=== PATIENT | female | born 1965 | race Caucasian/White ===

== ENCOUNTER 2017-01-04 15:20 | Emergency (ER) | payer MEDICARE ==
[2017-01-04 16:22] LABS: HEMOGLOBIN 15.9 gm/dl (12.3-15.3); RED BLOOD COUNT 4.93 M/UL (4.00-5.10); WHITE BLOOD COUNT 9.8 K/UL (4.5-11.0)
[2017-01-04 16:38] LABS: BUN/CREATININE RATIO 17 (0-10)
== END 2017-01-04 19:20 | disposition home or self-care (01) ==
LOC: ER1 15:20
PROVIDERS: Emergency Medicine
DX: K57.92 Diverticulitis of intestine, part unspecified, without perforation or abscess without bleeding (principal); I25.10 Atherosclerotic heart disease of native coronary artery without angina pectoris; E11.9 Type 2 diabetes mellitus without complications; I10 Essential (primary) hypertension; F17.210 Nicotine dependence, cigarettes, uncomplicated; Z79.84 Long term (current) use of oral hypoglycemic drugs; Z79.82 Long term (current) use of aspirin; Z79.02 Long term (current) use of antithrombotics/antiplatelets; Z79.899 Other long term (current) drug therapy
CPT/HCPCS: 36415; 80053; 81001; 82150; 83690; 85025; 85610; 85730; 96374; 96375; 99284; J2405; J7030

== ENCOUNTER 2017-01-21 17:55 | Emergency (ER) | payer MEDICARE ==
[2017-01-21 20:44] LABS: HEMOGLOBIN 15.4 gm/dl (12.3-15.3); RED BLOOD COUNT 4.85 M/UL (4.00-5.10); WHITE BLOOD COUNT 7.7 K/UL (4.5-11.0)
[2017-01-21 21:06] LABS: BUN/CREATININE RATIO 10 (0-10)
== END 2017-01-21 23:55 | disposition home or self-care (01) ==
LOC: ER1 17:55
PROVIDERS: Emergency Medicine
DX: R10.84 Generalized abdominal pain (principal); R11.0 Nausea; I25.10 Atherosclerotic heart disease of native coronary artery without angina pectoris; E11.9 Type 2 diabetes mellitus without complications; F17.200 Nicotine dependence, unspecified, uncomplicated; Z90.49 Acquired absence of other specified parts of digestive tract; Z95.5 Presence of coronary angioplasty implant and graft; Z79.02 Long term (current) use of antithrombotics/antiplatelets
CPT/HCPCS: 36415; 71010; 80053; 81001; 83690; 84484; 85025; 87086; 93005; 96374; 99284; J2270; J2405; J7050; Q9962

== ENCOUNTER → 2017-02-08 | Outpatient (CLI) | payer MEDICARE ==
[~2017-02-08] VITALS: Ht 162.6 cm; Wt 67.1 kg
== END ==
LOC: OPSV 02-07 15:30
DX: K57.32 Diverticulitis of large intestine without perforation or abscess without bleeding (principal)
CPT/HCPCS: 96365; J1335; J7050

== ENCOUNTER → 2017-02-09 | Outpatient (CLI) | payer MEDICARE ==
[~2017-02-09] VITALS: Ht 167.6 cm; Wt 67.1 kg
== END ==
LOC: OPSV 08:54
DX: K57.32 Diverticulitis of large intestine without perforation or abscess without bleeding (principal)
CPT/HCPCS: 96365; J1335; J7050

== ENCOUNTER → 2017-02-12 | Outpatient (CLI) | payer MEDICARE ==
[~2017-02-12] VITALS: Ht 167.6 cm; Wt 67.1 kg
== END ==
LOC: OPSV 11:00
DX: K57.32 Diverticulitis of large intestine without perforation or abscess without bleeding (principal)
CPT/HCPCS: 96365; J1335; J7050

== ENCOUNTER 2020-10-06 18:24 | Emergency (ER) | payer OTHER ==
[~2020-10-06 18:24] MED LIST: AMARYL1 MG PO; AMITRIPTYLINE100 MG PO; ASPIRIN 325MG325 MG PO; GLUCOPHAGE1000 MG PO; IBU600 MG PO; K-DUR TAB 20 M20 MEQ PO; KEPPRA1000 MG PO; LIPITOR40 MG PO; LOMOTIL 2.5-0.1 EACH PO; MIDODRINE HCL5 MG PO; OXYCONTIN10 MG PO; PAIN RELIEVER325 MG PO; PAXIL30 MG PO; PLAVIX75 MG PO; PREDNISONE2.5 MG PO; PROAMATINE 2.52.5 MG PO; ROPINIROLE HCL2 MG PO; TRICOR 145 MG145 MG PO; VITAMIN C500 MG PO; ZOFRAN ODT 4 MG4 MG PO
== END 2020-10-06 21:11 | disposition left against medical advice (07) ==
LOC: ER1 18:24
DX: R53.1 Weakness (principal); R11.0 Nausea; Z53.21 Procedure and treatment not carried out due to patient leaving prior to being seen by health care provider

== ENCOUNTER 2020-10-13 08:39 | Inpatient (IN) | payer OTHER ==
[~2020-10-13] VITALS: Ht 167.6 cm; Wt 52.6 kg
[2020-10-13 09:37] LABS: HEMOGLOBIN 7.8 gm/dl (12.3-15.3); RED BLOOD COUNT 2.67 M/UL (4.00-5.10); WHITE BLOOD COUNT 6.8 K/UL (4.5-11.0)
[2020-10-13] MEDS ORDERED: ELAVIL 10 MG TA10 MG PO (11:29)
[2020-10-13] MEDS ORDERED: GABAPENTIN300 MG PO (11:29)
[2020-10-13] MEDS ORDERED: LOPERAMIDE2 MG PO (11:30)
[2020-10-13] MEDS ORDERED: FERROUS SULFAT325 M2 PO (18:02)
[2020-10-13] MEDS ORDERED: VISTARIL 25 MG25 MG PO (18:07)
[2020-10-13 21:00] LABS: HEMOGLOBIN 8.9 gm/dl (12.3-15.3)
[2020-10-14 04:22] LABS: HEMOGLOBIN 9.7 gm/dl (12.3-15.3); WHITE BLOOD COUNT 5.8 K/UL (4.5-11.0)
[2020-10-14 04:32] LABS: RED BLOOD COUNT 3.27 M/UL (4.00-5.10)
[2020-10-14 04:52] LABS: BUN/CREATININE RATIO 9 (0-10)
--- NOTE | 2020-10-15 03:38 | NUR ---
INFORMED AT SHIFT CHANGE BY THERESA Santamaria, THAT PATIENT HR HAD BEEN RUNNING IN THE 40'S-50'S ALL DAY, SOMETIMES DROPPING LOW THE 30'S AND 20'S. DR MOYER WAS ON THE FLOOR ROUNDING ON PATIENTS SO WE STOPPED HIM IN THE [place] AND NOTIFIED HIM OF PATIENT'S HEARTRATE AND HE AGREED TO VISIT THE PATIENT DURING ROUNDS. OBSERVED DR MOYER ENTERING PATIENT'S ROOM AND PATIENT LATER STATED THAT DR MOYER DISCUSSED HER BRADYCARDIA WITH HER. PATIENT HAS HAD MULTIPLE EPISODES OF BRADYCARDIA THROUGHOUT THE NIGHT BUT HAS BEEN COMPLETELY ASYMPTOMATIC.
[2020-10-15 03:43] LABS: HEMOGLOBIN 8.8 gm/dl (12.3-15.3); RED BLOOD COUNT 3.01 M/UL (4.00-5.10)
[2020-10-15 03:49] LABS: WHITE BLOOD COUNT 3.5 K/UL (4.5-11.0)
[2020-10-15 04:04] LABS: BUN/CREATININE RATIO 9 (0-10)
[2020-10-15 15:44] LABS: HEMOGLOBIN 9.5 gm/dl (12.3-15.3)
[2020-10-16 03:33] LABS: HEMOGLOBIN 8.9 gm/dl (12.3-15.3); RED BLOOD COUNT 3.09 M/UL (4.00-5.10); WHITE BLOOD COUNT 4.3 K/UL (4.5-11.0)
[2020-10-16 04:04] LABS: BUN/CREATININE RATIO 8 (0-10)
[2020-10-17 02:46] LABS: HEMOGLOBIN 8.9 gm/dl (12.3-15.3); RED BLOOD COUNT 3.06 M/UL (4.00-5.10); WHITE BLOOD COUNT 5.4 K/UL (4.5-11.0)
[2020-10-17 03:10] LABS: BUN/CREATININE RATIO 9 (0-10)
[2020-10-18 02:45] LABS: HEMOGLOBIN 9.1 gm/dl (12.3-15.3); RED BLOOD COUNT 3.11 M/UL (4.00-5.10)
[2020-10-18 02:46] LABS: WHITE BLOOD COUNT 7.5 K/UL (4.5-11.0)
[2020-10-18 03:14] LABS: BUN/CREATININE RATIO 10 (0-10)
--- NOTE | 2020-10-18 14:38 | NUR ---
CALLED REPORT TO KATIE AT THIS TIME , PT IS GOING TO RM [id number] TELE APPLIED ,
[2020-10-19 04:34] LABS: HEMOGLOBIN 9.1 gm/dl (12.3-15.3); RED BLOOD COUNT 3.09 M/UL (4.00-5.10); WHITE BLOOD COUNT 7.8 K/UL (4.5-11.0)
[2020-10-19 04:55] LABS: BUN/CREATININE RATIO 15 (0-10)
[2020-10-21 03:39] LABS: HEMOGLOBIN 8.8 gm/dl (12.3-15.3); RED BLOOD COUNT 3.06 M/UL (4.00-5.10)
[2020-10-21 03:45] LABS: WHITE BLOOD COUNT 5.3 K/UL (4.5-11.0)
[2020-10-21 03:56] LABS: BUN/CREATININE RATIO 14 (0-10)
[2020-10-21] MEDS ORDERED: PROTONIX 40 MG40 M1 PO (12:36)
[2020-10-21] MEDS ORDERED: ATORVASTATIN CA20 MG PO (12:36)
[2020-10-21] MEDS ORDERED: ASPIRIN EC81 MG PO (12:36)
[2020-10-21] MEDS ORDERED: BENTYL 10MG CAP10 MG PO (12:39)
[2020-10-21] MEDS ORDERED: CEFUROXIME500 MG PO (12:41)
== END 2020-10-21 15:02 | disposition home or self-care (01) | DRG 377 ==
LOC: ER1 08:39 → CDU 11:00 → PROG CARE 11:00 → MED SURG 4 10-18 14:47
PROVIDERS: Internal Medicine; Internal Medicine Gastroenterology; Physician Assistant; ADMIT Internal Medicine
PROC: B24BZZZ Ultrasonography of Heart with Aorta (ICD-10-PCS; 2020-10-13)
PROC: 30233N1 Transfusion of Nonautologous Red Blood Cells into Peripheral Vein, Percutaneous Approach (ICD-10-PCS; 2020-10-13)
PROC: 0DJ08ZZ Inspection of Upper Intestinal Tract, Via Natural or Artificial Opening Endoscopic (ICD-10-PCS; principal; 2020-10-16 09:00)
DX: K92.1 Melena (principal); I21.4 Non-ST elevation (NSTEMI) myocardial infarction; D62 Acute posthemorrhagic anemia; L03.114 Cellulitis of left upper limb; E27.40 Unspecified adrenocortical insufficiency; Z20.822 Contact with and (suspected) exposure to COVID-19; I80.8 Phlebitis and thrombophlebitis of other sites; D50.9 Iron deficiency anemia, unspecified; I25.10 Atherosclerotic heart disease of native coronary artery without angina pectoris; E11.9 Type 2 diabetes mellitus without complications; E78.5 Hyperlipidemia, unspecified; K44.9 Diaphragmatic hernia without obstruction or gangrene; F17.210 Nicotine dependence, cigarettes, uncomplicated; I95.9 Hypotension, unspecified; R00.1 Bradycardia, unspecified; E87.6 Hypokalemia; G40.909 Epilepsy, unspecified, not intractable, without status epilepticus; Z90.49 Acquired absence of other specified parts of digestive tract; Z95.5 Presence of coronary angioplasty implant and graft; Z93.3 Colostomy status; Z85.41 Personal history of malignant neoplasm of cervix uteri; Z86.73 Personal history of transient ischemic attack (TIA), and cerebral infarction without residual deficits; Z90.710 Acquired absence of both cervix and uterus; Z82.49 Family history of ischemic heart disease and other diseases of the circulatory system; Z79.84 Long term (current) use of oral hypoglycemic drugs; Z79.02 Long term (current) use of antithrombotics/antiplatelets; Z79.899 Other long term (current) drug therapy
CPT/HCPCS: ECHO; 36415; 36430; 71045; 80048; 80053; 82550; 82553; 82728; 82962; 83540; 83550; 83605; 83735; 83874; 83880; 84484; 85014; 85018; 85025; 85379; 86850; 86900; 86901; 86920; 93005; 93306; 96372; 96374; 96375; 96376; 99285; C9113; J0295; J1756; J2250; J2270; J2405; J3010; J7030; J7040; P9016; Q0177; U0002

== ENCOUNTER 2021-11-20 11:52 | Observation (INO) | payer OTHER ==
[~2021-11-20] VITALS: Ht 167.6 cm; Wt 57.2 kg
[~2021-11-20 11:52] MED LIST changes: +ASPIRIN EC81 MG PO; +ATORVASTATIN CA20 MG PO; +BENTYL 10MG CAP10 MG PO; +CEFUROXIME500 MG PO; +ELAVIL 50 MG TA50 MG PO; +FERROUS SULFAT325 M2 PO; +GABAPENTIN600 MG PO; +HYDROXYZINE HCL25 MG PO; +LOPERAMIDE2 MG PO; +PROTONIX 40 MG40 M1 PO
[2021-11-20 12:42] LABS: HEMOGLOBIN 10.9 gm/dl (12.3-15.3); RED BLOOD COUNT 3.64 M/UL (4.00-5.10); WHITE BLOOD COUNT 5.4 K/UL (4.5-11.0)
[2021-11-20] MEDS ORDERED: ATORVASTATIN CA40 MG PO (14:40)
[2021-11-20] MEDS ORDERED: MIDODRINE HCL10 MG PO (14:48)
[2021-11-20] MEDS ORDERED: PAROXETINE HCL30 MG PO (14:49)
[2021-11-22] MEDS ORDERED: KEPPRA1000 MG PO (11:23)
[2021-11-22] MEDS ORDERED: PROTONIX 40 MG40 M1 PO (11:23)
== END 2021-11-22 14:44 | disposition home or self-care (01) ==
LOC: ER1 11:52 → CDU 14:01 → MED SURG 4 14:01 → CCU 15:45 → MED SURG 4 18:04
PROVIDERS: Internal Medicine; Nurse Practitioner; ADMIT Internal Medicine Infectious Disease
DX: G40.909 Epilepsy, unspecified, not intractable, without status epilepticus (principal); M62.82 Rhabdomyolysis; E11.9 Type 2 diabetes mellitus without complications; I25.10 Atherosclerotic heart disease of native coronary artery without angina pectoris; E78.5 Hyperlipidemia, unspecified; F17.210 Nicotine dependence, cigarettes, uncomplicated; F19.10 Other psychoactive substance abuse, uncomplicated; Z91.14 Patient's other noncompliance with medication regimen; Z95.5 Presence of coronary angioplasty implant and graft; Z79.82 Long term (current) use of aspirin; Z79.84 Long term (current) use of oral hypoglycemic drugs; Z79.899 Other long term (current) drug therapy; Z20.822 Contact with and (suspected) exposure to COVID-19
CPT/HCPCS: 36415; 71045; 72125; 73502; 80048; 80053; 80307; 81001; 82272; 82550; 82553; 82962; 83036; 83735; 83874; 84484; 85025; 93005; 96374; 96376; 99285; G0378; J1953; J7030; U0002

== ENCOUNTER 2021-11-29 13:54 | Observation (INO) | payer OTHER ==
[~2021-11-29] VITALS: Ht 167.6 cm; Wt 59.4 kg
[~2021-11-29 13:54] MED LIST changes: +ATORVASTATIN CA40 MG PO; +MIDODRINE HCL10 MG PO; +PAROXETINE HCL30 MG PO
[2021-11-29 14:43] LABS: HEMOGLOBIN 11.5 gm/dl (12.3-15.3); RED BLOOD COUNT 3.73 M/UL (4.00-5.10); WHITE BLOOD COUNT 8.1 K/UL (4.5-11.0)
[2021-11-30 06:29] LABS: RED BLOOD COUNT 3.41 M/UL (4.00-5.10); WHITE BLOOD COUNT 6.9 K/UL (4.5-11.0)
[2021-11-30] MEDS ORDERED: KEPPRA 250 MG250 MG PO (08:46)
[2021-12-01] MEDS ORDERED: KEPPRA750 MG PO (10:38)
--- NOTE | 2021-12-01 15:40 | NUR ---
1530- PT STATES SHE HAS NOBODY TO PICK HER UP, REFUSING JAIL. FISCAL ACCOUNTING CLERK/ NOTIFIED.
--- NOTE | 2021-12-01 16:06 | NUR ---
1600- NURSE NOTIFIED DR. FRIEND DUE TO PATIENT NOT HAVING A RIDE HOME TODAY. MD STATES PT CAN GO HOME TOMORROW.
== END 2021-12-02 14:20 | disposition home or self-care (01) ==
LOC: ER1 13:54 → CDU 16:44 → M/S 19:27
PROVIDERS: Emergency Medicine; Physician Assistant Medical; ADMIT Internal Medicine Infectious Disease
DX: R55 Syncope and collapse (principal); G40.89 Other seizures; N17.9 Acute kidney failure, unspecified; E11.22 Type 2 diabetes mellitus with diabetic chronic kidney disease; I13.0 Hypertensive heart and chronic kidney disease with heart failure and stage 1 through stage 4 chronic kidney disease, or unspecified chronic kidney disease; N18.9 Chronic kidney disease, unspecified; I50.9 Heart failure, unspecified; I25.10 Atherosclerotic heart disease of native coronary artery without angina pectoris; R32 Unspecified urinary incontinence; M25.562 Pain in left knee; F19.10 Other psychoactive substance abuse, uncomplicated; D64.89 Other specified anemias; F17.210 Nicotine dependence, cigarettes, uncomplicated; F12.11 Cannabis abuse, in remission; E16.2 Hypoglycemia, unspecified; E78.5 Hyperlipidemia, unspecified; Z91.14 Patient's other noncompliance with medication regimen; Z93.3 Colostomy status; Z95.5 Presence of coronary angioplasty implant and graft; Z90.49 Acquired absence of other specified parts of digestive tract; Z90.710 Acquired absence of both cervix and uterus; Z79.82 Long term (current) use of aspirin; Z20.822 Contact with and (suspected) exposure to COVID-19
CPT/HCPCS: 36415; 70450; 70551; 71045; 73564; 73610; 80048; 80053; 82550; 82553; 82607; 82962; 83735; 84484; 85025; 85027; 93005; 93270; 96374; 99285; G0378; J1953; U0002

== ENCOUNTER 2022-03-17 21:59 | Emergency (ER) | payer OTHER ==
[~2022-03-17 21:59] MED LIST changes: +KEPPRA 250 MG250 MG PO; +KEPPRA750 MG PO
[2022-03-17 23:18] LABS: HEMOGLOBIN 12.4 gm/dl (12.3-15.3); RED BLOOD COUNT 4.27 M/UL (4.00-5.10); WHITE BLOOD COUNT 8.4 K/UL (4.5-11.0)
[2022-03-17 23:46] LABS: BUN/CREATININE RATIO 12 (0-10)
== END 2022-03-18 05:35 | disposition home or self-care (01) ==
LOC: ER1 21:59 → EDBD 21:59 → ER1 03-18 05:35
PROVIDERS: Physician Assistant
DX: G40.909 Epilepsy, unspecified, not intractable, without status epilepticus (principal); S00.83XA Contusion of other part of head, initial encounter; S80.211A Abrasion, right knee, initial encounter; N17.9 Acute kidney failure, unspecified; F19.10 Other psychoactive substance abuse, uncomplicated; E11.9 Type 2 diabetes mellitus without complications; I10 Essential (primary) hypertension; F17.210 Nicotine dependence, cigarettes, uncomplicated; W01.10XA Fall on same level from slipping, tripping and stumbling with subsequent striking against unspecified object, initial encounter; Z20.822 Contact with and (suspected) exposure to COVID-19
CPT/HCPCS: 0240U; 70450; 71045; 72125; 73564; 80053; 80307; 81001; 82550; 82553; 83735; 84439; 84443; 84484; 85025; 87086; 93005; 99284